=== PATIENT | male | born 1990 | race African-American/Black ===

== ENCOUNTER 2020-01-18 09:50 | Emergency (ER) | payer OTHER ==
[~2020-01-18] VITALS: Ht 175.3 cm; Wt 81.0 kg
[2020-01-18] MEDS ORDERED: LORAZEPAM 1MG TABLET PO ONE (10:15)
[2020-01-18] MEDS ORDERED: OLANZAPINE 5MG TABLET ODT PO ONE (10:15)
[2020-01-18] MEDS ORDERED: TETANUS, DIPHTHERIA, PERTUSSIS VAC/PF 0.5ML (>7YR OLD) IM ONE (10:15)
[2020-01-18] MEDS ORDERED: LIDOCAINE 1%/EPI 1:100,000 10 ML VIAL IJ ONE (10:15)
[2020-01-18 10:37] LABS: BASOPHILS % 1.1 % (0.0-2.0); EOSINOPHILS % 1.6 % (0.0-5.0); HEMATOCRIT. 44.1 % (42.0-52.0); HEMOGLOBIN. 15.1 g/dL (14.0-18.0); LYMPHOCYTES % 62.9 % (20.0-50.0); MEAN CORPUSCULAR HEMOGLOBIN 32.1 pg (28.0-32.0); MEAN PLATELET VOLUME 8.4 fl (7.4-10.4); MONOCYTES % 11.1 % (2.0-8.0); NEUTROPHILS % 23.3 % (40.0-76.0); PLATELET 278 x1000/uL (130-400); RED CELL DISTRIBUTION WIDTH 14.2 % (11.6-14.6)
[2020-01-18 10:39] LABS: CLARITY URINE CLEAR (CLEAR); KETONES URINE NEGATIVE (NEGATIVE); LEUKOCYTE ESTERASE URINE NEGATIVE (NEGATIVE); NITRITE URINE NEGATIVE (NEGATIVE); OCCULT BLOOD URINE NEGATIVE (NEGATIVE); PROTEIN URINE NEGATIVE (NEGATIVE); SPECIFIC GRAVITY URINE 1.004 (1.005-1.030)
[2020-01-18 10:40] LABS: COLOR URINE PALE YELLOW (YELLOW)
[2020-01-18 10:44] LABS: CHLORIDE 102 mEq/L (98-107)
[2020-01-18 10:51] LABS: ETHANOL BLOOD < 10 mg/dL
[2020-01-18] MEDS ORDERED: SODIUM BICARBONATE 8.4% 1 MEQ/ML 50ML SYR IV ONE (11:00)
[2020-01-18] MEDS ORDERED: ADENOSINE 3 MG/ML 2ML VIAL IV ONE (11:00)
[2020-01-18 11:38] LABS: METHADONE URINE SCREEN NEGATIVE (NEGATIVE)
[2020-01-18 11:51] LABS: CANNABINOID URINE SCREEN PRESUMTIVE POSITIVE (NEGATIVE)
[2020-01-18 12:03] LABS: *AMPHETAMINES SCREEN URINE PRESUMTIVE POSITIVE (NEGATIVE); *BARBITURATES SCREEN URINE NEGATIVE (NEGATIVE); *BENZODIAZEPINES SCREEN URINE NEGATIVE (NEGATIVE); *COCAINE SCREEN URINE NEGATIVE (NEGATIVE); OPIATES URINE SCREEN NEGATIVE (NEGATIVE); PHENCYCLIDINE URINE SCREEN NEGATIVE (NEGATIVE)
[2020-01-18 14:48] VITALS: BP 107/77
== END 2020-01-18 14:49 | disposition home or self-care (01) ==
LOC: ER 10:07
DX: S61.511A Laceration without foreign body of right wrist, initial encounter (principal); W22.8XXA Striking against or struck by other objects, initial encounter; Y93.89 Activity, other specified; Y92.89 Other specified places as the place of occurrence of the external cause; Y99.8 Other external cause status; F12.10 Cannabis abuse, uncomplicated; F15.10 Other stimulant abuse, uncomplicated
CPT/HCPCS: 12001; 36415; 73110; 80053; 80305; 80307; 80320; 80329; 81003; 85025; 90471; 90715; 93005; 99285; J0153; J3490; G0480